=== PATIENT | female | born 1985 | race Caucasian/White ===

== ENCOUNTER 2020-12-17 09:04 | Emergency (ER) | payer OTHER ==
[2020-12-17 09:33] LABS: HEMOGLOBIN 16.4 gm/dl (12.3-15.3); RED BLOOD COUNT 4.98 M/UL (4.00-5.10); WHITE BLOOD COUNT 22.4 K/UL (4.5-11.0)
[2020-12-17 09:58] LABS: BUN/CREATININE RATIO 15 (0-10)
[2020-12-17] MEDS ORDERED: CEFUROXIME500 MG PO (13:11)
[2020-12-17] MEDS ORDERED: TORADOL 10 MG T10 MG PO (13:11)
[2020-12-17] MEDS ORDERED: ZOFRAN4 MG PO (13:11)
[2020-12-17] MEDS ORDERED: HYDROCODON-ACE1 EAC4 PO (13:14)
[2020-12-24] MEDS ORDERED: FLOMAX 0.4 MG0.4 MG PO (12:47)
[2020-12-24] MEDS ORDERED: VISTARIL25 MG PO (12:47)
[2020-12-24] MEDS ORDERED: LEXAPRO10 MG PO (12:47)
== END 2020-12-17 13:35 | disposition home or self-care (01) ==
LOC: ER1 09:04
PROVIDERS: Physician Assistant
DX: N13.2 Hydronephrosis with renal and ureteral calculous obstruction (principal); D72.829 Elevated white blood cell count, unspecified; Z88.0 Allergy status to penicillin; F17.210 Nicotine dependence, cigarettes, uncomplicated
CPT/HCPCS: 80053; 81001; 83690; 84703; 85025; 87040; 87086; 96365; 96375; 99284; J0696; J1885; J2405; J7030

== ENCOUNTER → 2020-12-18 | Outpatient (CLI) | payer OTHER ==
[~2020-12-18] MED LIST: BACTRIM DS TAB1 EACH PO; CEFUROXIME500 MG PO; FLOMAX 0.4 MG0.4 MG PO; HYDROCODON-ACE1 EAC4 PO; LEXAPRO10 MG PO; TORADOL 10 MG T10 MG PO; VISTARIL25 MG PO; ZOFRAN ODT 4 MG4 MG SL; ZOFRAN4 MG PO
[2020-12-18 10:00] LABS: HEMOGLOBIN 14.5 gm/dl (12.3-15.3)
[2020-12-18 10:07] LABS: RED BLOOD COUNT 4.44 M/UL (4.00-5.10); WHITE BLOOD COUNT 14.4 K/UL (4.5-11.0)
== END ==
LOC: LAB 09:40
PROVIDERS: Nurse Practitioner Family
DX: D72.829 Elevated white blood cell count, unspecified (principal); N20.2 Calculus of kidney with calculus of ureter
CPT/HCPCS: 36415; 82565; 85027

== ENCOUNTER 2020-12-21 07:53 | Emergency (ER) | payer OTHER ==
[~2020-12-21 07:53] MED LIST changes: -BACTRIM DS TAB1 EACH PO; -FLOMAX 0.4 MG0.4 MG PO; -LEXAPRO10 MG PO; -VISTARIL25 MG PO; -ZOFRAN ODT 4 MG4 MG SL
[2020-12-21 09:15] LABS: HEMOGLOBIN 13.2 gm/dl (12.3-15.3); RED BLOOD COUNT 4.08 M/UL (4.00-5.10); WHITE BLOOD COUNT 12.8 K/UL (4.5-11.0)
[2020-12-21] MEDS ORDERED: ZOFRAN ODT 4 MG4 MG SL (11:00)
[2020-12-21] MEDS ORDERED: HYDROCODON-ACE1 EAC4 PO (11:05)
[2020-12-21] MEDS ORDERED: BACTRIM DS TAB1 EACH PO (11:13)
[2020-12-24] MEDS ORDERED: VISTARIL25 MG PO (12:47)
[2020-12-24] MEDS ORDERED: FLOMAX 0.4 MG0.4 MG PO (12:47)
[2020-12-24] MEDS ORDERED: LEXAPRO10 MG PO (12:47)
== END 2020-12-21 11:28 | disposition home or self-care (01) ==
LOC: ER1 07:53
PROVIDERS: Physician Assistant
DX: N13.2 Hydronephrosis with renal and ureteral calculous obstruction (principal); Z87.442 Personal history of urinary calculi; Z88.0 Allergy status to penicillin; Z79.899 Other long term (current) drug therapy
CPT/HCPCS: 80048; 81001; 84703; 85025; 87086; 96374; 96375; 99284; J1200; J2270; J2405; J2930

== ENCOUNTER → 2020-12-22 | Outpatient (CLI) | payer OTHER ==
[~2020-12-22] MED LIST changes: +BACTRIM DS TAB1 EACH PO; +FLOMAX 0.4 MG0.4 MG PO; +LEXAPRO10 MG PO; +VISTARIL25 MG PO; +ZOFRAN ODT 4 MG4 MG SL
== END ==
LOC: RAD 14:48
DX: N20.1 Calculus of ureter (principal)
CPT/HCPCS: 74018

== ENCOUNTER → 2020-12-24 | Day surgery (SDC) | payer OTHER | END | disposition home or self-care (01) | LOC: OR 11:41 | DX: N13.2 Hydronephrosis with renal and ureteral calculous obstruction (principal); F41.9 Anxiety disorder, unspecified; F17.210 Nicotine dependence, cigarettes, uncomplicated; Z88.0 Allergy status to penicillin; Z79.899 Other long term (current) drug therapy; Z20.822 Contact with and (suspected) exposure to COVID-19 | CPT/HCPCS: 81001; 84703; C1769; C1894; C2617; J1100; J1170; J1956; J2001; J2250; J2405; J2704; J3010; J7030; J7120; U0002 ==

== ENCOUNTER 2022-01-21 16:44 | Emergency (ER) | payer OTHER | END 2022-01-21 17:05 | disposition left against medical advice (07) | LOC: ER1 16:44 | DX: Z53.21 Procedure and treatment not carried out due to patient leaving prior to being seen by health care provider (principal) ==